=== PATIENT | male | born 1995 | race Caucasian/White ===

== ENCOUNTER 2018-05-11 18:27 | Observation (INO) | payer BC ==
[2018-05-11 18:28] VITALS: BMI 25.7
--- NOTE | 2018-05-11 19:46 | ED PDOC ---
HPI: General Adult Time Seen by Provider: 05/11/18 18:36 Chief Complaint (Nursing): Weakness/Neurological Deficit Chief Complaint (Provider): Weakness/Neurological Deficit History Per: Patient History/Exam Limitations: no limitations Onset/Duration Of Symptoms: Days (x2) Current Symptoms Are (Timing): Gone Now Additional Complaint(s): 22 year old male with no significant medical history, presents to the emergency department for an evaluation of generalized weakness and numbness of his left arm with left sided chest discomfort. Patient states his symptoms began yesterday afternoon and felt his speech slurring last night. Upon his research online, patient became concerned for a possible stroke, prompting ED visit. Patient currently reports no symptoms or complaints at present. PMD: none provided NIHSS Stroke Scale - Date/Time Evaluation Performed Date Performed: 05/11/18 Time Performed: 19:34 When Was NIHSS Performed: Baseline - How Severe is the Stroke Level of Consciousness: 0=Alert LOC to Questions: 0=Both comments correct LOC to commands: 0=Obeys both correctly Best Gaze: 0=Normal Visual: 0=No visual loss Facial: 0=Normal Motor Arm - Left: 0=No drift Motor Arm - Right: 0=No drift Motor Leg - Left: 0=No drift Motor Leg - Right: 0=No drift Limb Ataxia: 0=Absent Sensory: 0=Normal Best Language: 0=No aphasia Dysarthia: 0=Normal articulation Extinction & Inattention (Neglect): 0=Normal, no object Score: 0 Past Medical History Reviewed: Historical Data, Nursing Documentation, Vital Signs Vital Signs: Last Vital Signs Temp 97.8 F 05/12/18 00:04 Pulse 62 05/12/18 00:04 Resp 18 05/12/18 00:04 BP 137/73 05/12/18 00:04 Pulse Ox 98 05/12/18 04:46 - Medical History PMH: No Chronic Diseases Denies: Depression - Surgical History Surgical History: No Surg Hx - Family History Family History: States: Unknown Family Hx - Social History Current smoker - smoking cessation education provided: Yes Alcohol: Occasional Drugs: Denies - Immunization History Hx Tetanus Toxoid Vaccination: Yes - Home Medications Home Medications: Ambulatory Orders Medication Instructions Recorded No Known Home Med 05/21/13 - Allergies Allergies/Adverse Reactions: Allergies Allergy/AdvReac Type Severity Reaction Status Date / Time No Known Allergies Allergy Verified 05/21/13 00:40 Review of Systems ROS Statement: Except As Marked, All Systems Reviewed And Found Negative Neurological: Positive for: Weakness (left arm - resolved), Numbness (left arm - resolved), Change in Speech (slurred - resolved) Physical Exam - Reviewed Nursing Documentation Reviewed: Yes Vital Signs Reviewed: Yes - Physical Exam Appears: Positive for: Well, Non-toxic, No Acute Distress Head Exam: Positive for: ATRAUMATIC, NORMAL INSPECTION, NORMOCEPHALIC Skin: Positive for: Normal Color. Negative for: Rash Eye Exam: Positive for: Normal appearance, EOMI, PERRL ENT: Positive for: Normal ENT Inspection Neck: Positive for: Normal Cardiovascular/Chest: Positive for: Regular Rate, Rhythm. Negative for: Murmur Respiratory: Positive for: Normal Breath Sounds. Negative for: Respiratory Distress Gastrointestinal/Abdominal: Positive for: Normal Exam, Soft. Negative for: Tenderness Extremity: Positive for: Normal ROM (upper/lower) Neurologic/Psych: Positive for: Alert (x3), nail technician II-XII (intact), Oriented, Other (speech is clear, speaking full sentences). Negative for: Motor/Sensory Deficits, Aphasia, Facial Droop - Laboratory Results Result Diagrams: 05/11/18 20:20 05/11/18 20:20 - ECG O2 Sat by Pulse Oximetry: 98 (RA) Pulse Ox Interpretation: Normal Medical Decision Making Medical Decision Making: Initial Impression: 22 year old male with nonspecific weakness Initial Plan: * CT head without contrast * Alcohol serum * CMP * Drug screen, urine * CBC Time: 1951 --Accucheck: 76 Time: 2109 --Labs reviewed: No significant abnormality. Toxicology is positive for cocaine and marijuana. Time: 2129 --CT head FINDINGS: BRAIN: Unremarkable. No hemorrhage. No significant white matter disease. No edema. VENTRICLES: Unremarkable. No ventriculomegaly. BONES/JOINTS: Unremarkable. No acute fracture. SOFT TISSUES: Unremarkable. SINUSES: Unremarkable as visualized. No acute sinusitis. MASTOID AIR CELLS: Unremarkable as visualized. No mastoid effusion. IMPRESSION: No acute findings. Time: 2134 --Upon re-evaluation, provider discussed results with patient. He admits to cocaine use, last use was on 05/09/18. Given symptoms of intermittent chest pain , patient will be admitted for further evaluation. Counseling was provided and all questions were answered regarding diagnosis. There is agreement to discharge plan. Clinical Impression: Chest pain Scribe Attestation: Documented by Kerri Wheeler, acting as a scribe for Rufus Castillo MD. Provider Scribe Attestation: All medical record entries made by the Scribe were at my direction and personally dictated by me. I have reviewed the chart and agree that the record accurately reflects my personal performance of the history, physical exam, medical decision making, and the department course for this patient. I have also personally directed, reviewed, and agree with the discharge instructions and disposition. Disposition - Clinical Impression Clinical Impression: Cocaine abuse, Chest pain - Disposition Disposition: Routine/Home Disposition Time: 21:00 Condition: FAIR
[2018-05-11 20:46] LABS: BASO % 0.5 % (0.0-2.0); EOS # 0.3 K/uL (0.0-0.7); LYMPH # 2.1 K/uL (1.0-4.3); LYMPH % 26.2 % (20.0-40.0); MEAN CELL VOLUME 81.5 fl (80.0-94.0); MEAN CORPUSCULAR HEMOGLOBIN 27.7 pg (27.0-31.0); MEAN PLATELET VOLUME 8.5 fl (7.2-11.7); MONO # 0.8 K/uL (0.0-0.8); MONO % 9.8 % (0.0-10.0); NEUT # 4.8 K/uL (1.8-7.0); NEUT % 59.5 % (50.0-75.0); NRBC % 0.2 % (0.0-0.0); RBC 5.78 Mil/uL (4.40-5.90); RED CELL DISTRIBUTION WIDTH 13.1 % (11.5-14.5); WHITE BLOOD COUNT 8.1 K/uL (4.8-10.8)
[2018-05-11 21:04] LABS: ALB/GLOB RATIO 1.3 (1.0-2.1); ALBUMIN 4.7 g/dL (3.5-5.0); ALT/SGPT 29 U/L (21-72); AST/SGOT 29 U/L (17-59); BLOOD UREA NITROGEN 15 mg/dl (9-20); CALCIUM 9.8 mg/dL (8.4-10.2); GFR AFRICAN-AMERICAN > 60; GFR NON-AFRICAN AMERICAN > 60
[2018-05-11 21:06] LABS: BARBITURATES, UR NEGATIVE (NEGATIVE); BENZODIAZEPINES, UR NEGATIVE (NEGATIVE); OPIATES, UR NEGATIVE (NEGATIVE); PHENCYCLIDINE, UR NEGATIVE (NEGATIVE)
[2018-05-12 00:05] VITALS: RESP 18
[2018-05-12 06:23] LABS: BASO % 0.4 % (0.0-2.0); EOS # 0.3 K/uL (0.0-0.7); EOS % 3.7 % (0.0-4.0); HEMOGLOBIN 14.6 g/dL (12.0-18.0); LYMPH # 2.6 K/uL (1.0-4.3); LYMPH % 34.1 % (20.0-40.0); MEAN CELL VOLUME 81.9 fl (80.0-94.0); MEAN CORPUSCULAR HEMOGLOBIN 27.5 pg (27.0-31.0); MEAN CORPUSCULAR HGB CONC 33.6 g/dL (33.0-37.0); MEAN PLATELET VOLUME 8.4 fl (7.2-11.7); MONO # 0.8 K/uL (0.0-0.8); NEUT # 3.9 K/uL (1.8-7.0); NEUT % 51.8 % (50.0-75.0); NRBC % 0.1 % (0.0-0.0); RBC 5.33 Mil/uL (4.40-5.90); RED CELL DISTRIBUTION WIDTH 13.1 % (11.5-14.5); WHITE BLOOD COUNT 7.6 K/uL (4.8-10.8)
[2018-05-12 06:30] LABS: ALB/GLOB RATIO 1.3 (1.0-2.1); ALBUMIN 3.9 g/dL (3.5-5.0); ALT/SGPT 32 U/L (21-72); AST/SGOT 21 U/L (17-59); BLOOD UREA NITROGEN 17 mg/dl (9-20); GFR AFRICAN-AMERICAN > 60; GFR NON-AFRICAN AMERICAN > 60
[2018-05-12 08:13] VITALS: BP 105/56; PULSE 69; TEMP 97.6; O2SAT 99
--- NOTE | 2018-05-12 09:26 | CP.PCM.CON ---
History of Present Illness - History of Present Illness History of Present Illness: patient seen examined. full consult to follow. cocaine user with chest pain. cardiac enzymes are negative. no current chest pain. recommend conservative therapy. can d/c home and risk factor modification Past Patient History - Tetanus Immunizations Tetanus Immunization: Unknown - Past Medical History & Family History Past Medical History?: No - Past Social History Alcohol: Occasional Drugs: Denies - MUSCULOSKELETAL/RHEUMATOLOGICAL Hx Falls: No - PSYCHIATRIC Hx Depression: No - SURGICAL HISTORY Hx Surgeries: No Meds Allergies/Adverse Reactions: Allergies Allergy/AdvReac Type Severity Reaction Status Date / Time No Known Allergies Allergy Verified 05/21/13 00:40 - Medications Medications: Current Medications Aspirin (Aspirin Chewable) 81 mg PO DAILY TORI Last Admin: 05/12/18 08:20 Dose: 81 mg Results - Vital Signs Recent Vital Signs: Last Vital Signs Temp 97.6 F 05/12/18 08:00 Pulse 69 05/12/18 08:00 Resp 18 05/12/18 08:00 BP 105/56 L 05/12/18 08:00 Pulse Ox 99 05/12/18 08:00 - Labs Result Diagrams: 05/12/18 05:45 05/12/18 05:45 Labs: Laboratory Results - last 24 hr 05/11/18 05/11/18 05/11/18 18:44 20:12 20:20 WBC 8.1 RBC 5.78 Hgb 16.0 Hct 47.1 MCV 81.5 MCH 27.7 MCHC 34.0 RDW 13.1 Plt Count 314 MPV 8.5 Neut % (Auto) 59.5 Lymph % (Auto) 26.2 [place] % (Auto) 9.8 Eos % (Auto) 4.0 Baso % (Auto) 0.5 Neut # (Auto) 4.8 Lymph # (Auto) 2.1 [place] # (Auto) 0.8 Eos # (Auto) 0.3 Baso # (Auto) 0.0 Sodium Potassium Chloride Carbon Dioxide Anion Gap BUN Creatinine Est GFR ( Amer) Est GFR (Non-Af Amer) POC Glucose (mg/dL) 76 Random Glucose Calcium Total Bilirubin AST ALT Alkaline Phosphatase Troponin I Total Protein Albumin Globulin Albumin/Globulin Ratio Urine Opiates Screen Negative Urine Methadone Screen Negative Ur Barbiturates Screen Negative Ur Phencyclidine Scrn Negative Ur Amphetamines Screen Negative U Benzodiazepines Scrn Negative U Oth Cocaine Metabols Positive H U Cannabinoids Screen Positive H Alcohol, Quantitative 05/11/18 05/11/18 05/12/18 20:20 22:08 05:45 WBC 7.6 RBC 5.33 Hgb 14.6 Hct 43.6 MCV 81.9 MCH 27.5 MCHC 33.6 RDW 13.1 Plt Count 284 MPV 8.4 Neut % (Auto) 51.8 Lymph % (Auto) 34.1 [place] % (Auto) 10.0 Eos % (Auto) 3.7 Baso % (Auto) 0.4 Neut # (Auto) 3.9 Lymph # (Auto) 2.6 [place] # (Auto) 0.8 Eos # (Auto) 0.3 Baso # (Auto) 0.0 Sodium 142 Potassium 5.0 Chloride 101 Carbon Dioxide 30 Anion Gap 16 BUN 15 Creatinine 1.3 Est GFR ( Amer) > 60 Est GFR (Non-Af Amer) > 60 POC Glucose (mg/dL) Random Glucose 88 Calcium 9.8 Total Bilirubin 0.7 AST 29 ALT 29 Alkaline Phosphatase 117 Troponin I < 0.0120 Total Protein 8.2 Albumin 4.7 Globulin 3.6 Albumin/Globulin Ratio 1.3 Urine Opiates Screen Urine Methadone Screen Ur Barbiturates Screen Ur Phencyclidine Scrn Ur Amphetamines Screen U Benzodiazepines Scrn U Oth Cocaine Metabols U Cannabinoids Screen Alcohol, Quantitative < 10 05/12/18 05/12/18 05:45 08:14 WBC RBC Hgb Hct MCV MCH MCHC RDW Plt Count MPV Neut % (Auto) Lymph % (Auto) [place] % (Auto) Eos % (Auto) Baso % (Auto) Neut # (Auto) Lymph # (Auto) [place] # (Auto) Eos # (Auto) Baso # (Auto) Sodium 143 Potassium 4.0 Chloride 104 Carbon Dioxide 25 Anion Gap 18 BUN 17 Creatinine 1.3 Est GFR ( Amer) > 60 Est GFR (Non-Af Amer) > 60 POC Glucose (mg/dL) Random Glucose 89 Calcium 9.0 Total Bilirubin 0.3 AST 21 ALT 32 Alkaline Phosphatase 112 Troponin I < 0.0120 Total Protein 7.0 Albumin 3.9 Globulin 3.0 Albumin/Globulin Ratio 1.3 Urine Opiates Screen Urine Methadone Screen Ur Barbiturates Screen Ur Phencyclidine Scrn Ur Amphetamines Screen U Benzodiazepines Scrn U Oth Cocaine Metabols U Cannabinoids Screen Alcohol, Quantitative
--- NOTE | 2018-05-12 10:54 | CP.PCM.HP ---
History of Present Illness - History of Present Illness History of Present Illness: pt admitted for cp radiating to lue after using cocaine 2 days ago. had facial numbness after using drug as well. no f/c, n/v/d. trop x 2 negative. cleared by cardio for dc home. denies m/s hx. all labs/images noted Present on Admission - Present on Admission Any Indicators Present on Admission: No Review of Systems - Cardiovascular Cardiovascular: As Per HPI, Chest Pain Past Patient History - Tetanus Immunizations Tetanus Immunization: Unknown - Past Medical History & Family History Past Medical History?: No - Past Social History Alcohol: Occasional Drugs: Denies - MUSCULOSKELETAL/RHEUMATOLOGICAL Hx Falls: No - PSYCHIATRIC Hx Depression: No - SURGICAL HISTORY Hx Surgeries: No Meds Allergies/Adverse Reactions: Allergies Allergy/AdvReac Type Severity Reaction Status Date / Time No Known Allergies Allergy Verified 05/21/13 00:40 Physical Exam - Constitutional Appears: Well, Non-toxic, No Acute Distress - Head Exam Head Exam: ATRAUMATIC, NORMAL INSPECTION, NORMOCEPHALIC - Eye Exam Eye Exam: EOMI, Normal appearance, PERRL Pupil Exam: NORMAL ACCOMODATION, PERRL - ENT Exam ENT Exam: Mucous Membranes Moist, Normal Exam - Neck Exam Neck exam: Positive for: Normal Inspection - Respiratory Exam Respiratory Exam: Clear to Auscultation Bilateral, NORMAL BREATHING PATTERN - Cardiovascular Exam Cardiovascular Exam: REGULAR RHYTHM, RRR, +S1, +S2 - GI/Abdominal Exam GI & Abdominal Exam: Normal Bowel Sounds, Soft. absent: Tenderness - Extremities Exam Extremities exam: Positive for: full ROM, normal capillary refill, normal inspection, pedal pulses present - Back Exam Back exam: FULL ROM, NORMAL INSPECTION - Neurological Exam Neurological exam: Alert, CN II-XII Intact, Normal Gait, Oriented x3, Reflexes Normal - Psychiatric Exam Psychiatric exam: Normal Affect, Normal Mood - Skin Skin Exam: Dry, Intact, Normal Color, Warm Results - Vital Signs Recent Vital Signs: Last Vital Signs Temp 97.6 F 05/12/18 08:00 Pulse 69 05/12/18 08:00 Resp 18 05/12/18 08:00 BP 105/56 L 05/12/18 08:00 Pulse Ox 99 05/12/18 08:00 - Labs Result Diagrams: 05/12/18 05:45 05/12/18 05:45 Labs: Laboratory Results - last 24 hr 05/11/18 05/11/18 05/11/18 18:44 20:12 20:20 WBC 8.1 RBC 5.78 Hgb 16.0 Hct 47.1 MCV 81.5 MCH 27.7 MCHC 34.0 RDW 13.1 Plt Count 314 MPV 8.5 Neut % (Auto) 59.5 Lymph % (Auto) 26.2 [place] % (Auto) 9.8 Eos % (Auto) 4.0 Baso % (Auto) 0.5 Neut # (Auto) 4.8 Lymph # (Auto) 2.1 [place] # (Auto) 0.8 Eos # (Auto) 0.3 Baso # (Auto) 0.0 Sodium Potassium Chloride Carbon Dioxide Anion Gap BUN Creatinine Est GFR ( Amer) Est GFR (Non-Af Amer) POC Glucose (mg/dL) 76 Random Glucose Calcium Total Bilirubin AST ALT Alkaline Phosphatase Troponin I Total Protein Albumin Globulin Albumin/Globulin Ratio Urine Opiates Screen Negative Urine Methadone Screen Negative Ur Barbiturates Screen Negative Ur Phencyclidine Scrn Negative Ur Amphetamines Screen Negative U Benzodiazepines Scrn Negative U Oth Cocaine Metabols Positive H U Cannabinoids Screen Positive H Alcohol, Quantitative 05/11/18 05/11/18 05/12/18 20:20 22:08 05:45 WBC 7.6 RBC 5.33 Hgb 14.6 Hct 43.6 MCV 81.9 MCH 27.5 MCHC 33.6 RDW 13.1 Plt Count 284 MPV 8.4 Neut % (Auto) 51.8 Lymph % (Auto) 34.1 [place] % (Auto) 10.0 Eos % (Auto) 3.7 Baso % (Auto) 0.4 Neut # (Auto) 3.9 Lymph # (Auto) 2.6 [place] # (Auto) 0.8 Eos # (Auto) 0.3 Baso # (Auto) 0.0 Sodium 142 Potassium 5.0 Chloride 101 Carbon Dioxide 30 Anion Gap 16 BUN 15 Creatinine 1.3 Est GFR ( Amer) > 60 Est GFR (Non-Af Amer) > 60 POC Glucose (mg/dL) Random Glucose 88 Calcium 9.8 Total Bilirubin 0.7 AST 29 ALT 29 Alkaline Phosphatase 117 Troponin I < 0.0120 Total Protein 8.2 Albumin 4.7 Globulin 3.6 Albumin/Globulin Ratio 1.3 Urine Opiates Screen Urine Methadone Screen Ur Barbiturates Screen Ur Phencyclidine Scrn Ur Amphetamines Screen U Benzodiazepines Scrn U Oth Cocaine Metabols U Cannabinoids Screen Alcohol, Quantitative < 10 05/12/18 05/12/18 05:45 08:14 WBC RBC Hgb Hct MCV MCH MCHC RDW Plt Count MPV Neut % (Auto) Lymph % (Auto) [place] % (Auto) Eos % (Auto) Baso % (Auto) Neut # (Auto) Lymph # (Auto) [place] # (Auto) Eos # (Auto) Baso # (Auto) Sodium 143 Potassium 4.0 Chloride 104 Carbon Dioxide 25 Anion Gap 18 BUN 17 Creatinine 1.3 Est GFR ( Amer) > 60 Est GFR (Non-Af Amer) > 60 POC Glucose (mg/dL) Random Glucose 89 Calcium 9.0 Total Bilirubin 0.3 AST 21 ALT 32 Alkaline Phosphatase 112 Troponin I < 0.0120 Total Protein 7.0 Albumin 3.9 Globulin 3.0 Albumin/Globulin Ratio 1.3 Urine Opiates Screen Urine Methadone Screen Ur Barbiturates Screen Ur Phencyclidine Scrn Ur Amphetamines Screen U Benzodiazepines Scrn U Oth Cocaine Metabols U Cannabinoids Screen Alcohol, Quantitative Assessment & Plan (1) Chest pain Assessment and Plan: trops x 2 negative, cardio asa Status: Acute (2) Cocaine abuse Assessment and Plan: d/c abstaining from further use. pt claims doesnt remember taking cocaine Status: Acute - Assessment and Plan (Free Text) Assessment: dvt ppx ambulation Decision To Admit - Pt Status Changed To: Hospital Disposition Of: Observation - . Bed Request Type: Telemetry Admitting Physician: Tunde De La Fuente
--- NOTE | 2018-05-12 10:57 | CT ---
Date of service: 05/11/2018 PROCEDURE: CT HEAD WITHOUT CONTRAST. HISTORY: weakness COMPARISON: None available. TECHNIQUE: Axial computed tomography images were obtained through the head/brain without intravenous contrast. Radiation dose: Total exam DLP = 1895.01 mGy-cm. This CT exam was performed using one or more of the following dose reduction techniques: Automated exposure control, adjustment of the mA and/or kV according to patient size, and/or use of iterative reconstruction technique. FINDINGS: HEMORRHAGE: No intracranial hemorrhage. BRAIN: No evidence of large acute infarct. Note that the possibility of a small hyperacute infarct not excluded. Clinical correlation recommended. No mass effect or edema. No atrophy or chronic microvascular ischemic changes. VENTRICLES: Unremarkable. No hydrocephalus. CALVARIUM: Unremarkable. PARANASAL SINUSES: Unremarkable as visualized. No significant inflammatory changes. MASTOID AIR CELLS: Unremarkable as visualized. No inflammatory changes. OTHER FINDINGS: None. IMPRESSION: No evidence of acute intracranial hemorrhage. See above discussion for additional details Preliminary report provided by overnight radiology service
--- NOTE | 2018-05-13 10:16 | CARD ---
APPROVED REPORT Date of service: 05/11/2018 EKG Measurement Heart [id number] <Conclusion> Sinus bradycardia with marked sinus arrhythmia Otherwise normal ECG
== END 2018-05-12 10:36 | disposition home or self-care (01) ==
LOC: H.ER 18:27 → H.ERHOLD 22:01 → H.TEL 23:15
PROVIDERS: ADMIT Family Medicine; ATTEND Family Medicine
DX: F14.10 Cocaine abuse, uncomplicated (principal); R07.89 Other chest pain; F17.200 Nicotine dependence, unspecified, uncomplicated
CPT/HCPCS: 36415; 70450; 80053; 82948; 84484; 85025; 99285; G0378; G0480